=== PATIENT | male | born 1975 | race Caucasian/White ===

== ENCOUNTER 2017-06-06 19:08 | Emergency (ER) | payer SELFPAY ==
[~2017-06-06] VITALS: Ht 177.8 cm; Wt 86.4 kg
[2017-06-06] MEDS ORDERED: AUGMENTIN875 MG PO (20:24)
[2017-06-06 20:29] VITALS: BP 154/94
== END 2017-06-06 20:29 | disposition home or self-care (01) ==
LOC: EME 19:08
PROC: 3E0234Z Introduction of Serum, Toxoid and Vaccine into Muscle, Percutaneous Approach (ICD-10-PCS; principal; 2017-06-06)
DX: S61.256A Open bite of right little finger without damage to nail, initial encounter (principal); Y04.1XXA Assault by human bite, initial encounter
CPT/HCPCS: 73140; 99281; 99283